=== PATIENT | female | born 1960 | race Caucasian/White ===

== ENCOUNTER 2021-04-12 08:06 | Day surgery (SDC) | payer MEDICARE, OTHER, SELFPAY ==
--- NOTE | 2021-04-12 08:32 | HO.ANESPROP2 ---
HPI - Anesthesia Eval Consult details Narrative: 60 year old female patient for colonoscopy PMF Family History Family history of problems with anesthesia: No Surgical History Surgical History Hx of colonoscopy S/P cervical spinal fusion History of Problems with Anesthesia: No Social History Social History Patient Tobacco Use Status: Never used Tobacco Second Hand Smoke Exposure: No Use of substances other than those prescribed or required for medical reasons: No Are you DNR?: No Advance Directives: No Advance Directives Information Provided: Yes Advance Directives on File: No Recently lost weight without trying: No Meds Allergies Allergy/AdvReac Type Severity Reaction Status Date / Time Iodinated Contrast Media Allergy Unknown HIVES Verified 04/12/21 08:53 [IV DYE, IODINE CONTAINING CONTRAST ] Exam Exam Date and Time: April 12, 2021 0832 Height,Weight and Vital Signs: Vital Signs Temp Pulse Resp BP Pulse Ox 04/12/21 09:40 97 F 75 18 136/75 99 Airway Mallampati Class: I TM Dist: >3cm Neck ROM: Limited (Cervical fustion C2-T2. Indentation about C7,C8 level posteriorly. Neck cannot/should not be moved from posterior) Heart: RRR Lungs: CTAB Assessment and Plan Assessment Anesthesia Assessment: Anesthesia Plan Discussed and Chart Reviewed Final Anesthetic Review NPO: Yes ASA Class: I Final Preanesthetic Review: No Changes in Pt Med Stat, Meds/Allgs Chart Reviewed, Consent Obtained/Reviewed and Anes Risks/Benef Reviewed Patient Risk: Low Procedure Risk: Low Assessment/Block/Sedation in : Assess/Block/Sedation- Anesthetic Plan Anesthetic Plan: MAC: (Patient will position self and neck will be supported and comfortable before sedation begun) Disposition: Standard PACU
[2021-04-12 08:51] VITALS: BMI 21.2
[2021-04-12] MEDS: Sodium Phosphate,Mono-Dibasic 133 ML ENEMA PR ×2 (09:10→09:18)
[2021-04-12 09:40] VITALS: BP 136/75; PULSE 75; RESP 18; TEMP 36.1; O2SAT 99
[2021-04-12] MEDS: Lactated Ringers 1,000 ML 100 ML IVCONT (09:42)
--- NOTE | 2021-04-12 09:44 | MHC.SHP ---
Pre-Procedural Eval Section A Date of Service: 04/12/21 The patient is an INPATIENT: No Changes since office visit: Yes Cold of Flu in the past 2 weeks, Yes New Medical Problems, Yes Changes in Medication and Yes Patient answered all questions The History & Physical has been completed within 30 days and I have reviewed it.: Yes Section B Chief Complaint: Screening Allergies: Allergies Allergy/AdvReac Type Severity Reaction Status Date / Time Iodinated Contrast Media Allergy Unknown HIVES Verified 04/12/21 08:53 [IV DYE, IODINE CONTAINING CONTRAST ] Plan I have reviewed the history and physical and performed a pertinent physical examination on my patient. No changes have occurred unless specified.
--- NOTE | 2021-04-12 10:19 | PM.OP ---
Brief Operative Note Date of Service: 04/12/21 Pre-op diagnosis: screening Post-op diagnosis: same Procedure: colonoscopy Surgeon: See Cabral Anesthesia: MAC Estimated blood loss (mL): 0 Pathology: none sent Condition: stable Disposition: PACU
[2021-04-12 10:21] VITALS: BP 103/66; PULSE 84; RESP 16; TEMP 36.4; O2SAT 100
[2021-04-12 10:36] VITALS: BP 126/67; PULSE 76; RESP 18; O2SAT 97
--- NOTE | 2021-04-12 20:27 | OP_ITS ---
SURGEON: See Cabral MD INDICATIONS: Colon cancer screening. PREOPERATIVE DIAGNOSIS: POSTOPERATIVE DIAGNOSIS: PROCEDURE PERFORMED: Colonoscopy to the terminal ileum. ESTIMATED BLOOD LOSS: COMPLICATIONS: ANESTHESIA: ASSISTANTS: SPECIMENS: MEDICATIONS: Monitored anesthesia care. DESCRIPTION OF PROCEDURE: History and physical performed. The risks and benefits of the procedure were explained to the patient. Informed consent was obtained. The patient was placed in the left lateral decubitus position. A digital rectal exam was performed and was found to be normal. The Olympus pediatric video colonoscope was introduced into the rectum and advanced to the cecum without difficulty. The cecum was identified by transillumination, palpation, and identification of ileocecal valve. Examination was performed. The scope was removed. She tolerated the procedure well and was taken to recovery area in stable condition. FINDINGS: The terminal ileum was normal. Visualized colonic mucosa was normal. The quality of prep was good. No polyps were identified. Retroflexed examination was normal. IMPRESSION: Normal colonoscopy. RECOMMENDATION: 1. Followup as needed. 2. Repeat colonoscopy is recommended in 10 years for average risk individuals. MD CORA Watson/JANETTE / [id number]
== END 2021-04-12 13:18 | disposition home or self-care (01) ==
PROVIDERS: PCP Internal Medicine; Visit Provider Internal Medicine Gastroenterology
PROC: 0DJD8ZZ Inspection of Lower Intestinal Tract, Via Natural or Artificial Opening Endoscopic (ICD-10-PCS; CPT 45378; principal; 2021-04-12 09:20)
DX: Z12.11 Encounter for screening for malignant neoplasm of colon (principal); Z98.1 Arthrodesis status; Z79.1 Long term (current) use of non-steroidal anti-inflammatories (NSAID); Z91.041 Radiographic dye allergy status
CPT/HCPCS: G0121